=== PATIENT | male | born 1965 | race Caucasian/White ===

== ENCOUNTER 2018-03-28 14:05 | Emergency (ER) | payer OTHER ==
[2018-03-28 14:53] VITALS: BP 140/85
--- NOTE | 2018-03-28 15:07 | UC ---
Lower Extremity/Ankle HPI - HPI Summary HPI Summary: 52 year old male presents with lesion to plantar left heel x 2 months. States over the past 2 weeks has become painful with weight bearing. States "feels like there is something sharp in there". 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 Denies fever, chills, redness, swelling, or drainage. - History of Current Complaint Chief Complaint: UCLowerExtremity Stated Complaint: LEFT HEEL PAIN Time Seen by Provider: 03/28/18 14:56 Hx Obtained From: Patient Onset/Duration: Gradual Onset, Lasting Weeks Severity Currently: Mild Pain Intensity: 2 Aggravating Factor(s): Other - Weight bearing Alleviating Factor(s): Nothing Able to Bear Weight: Yes - Allergies/Home Medications Allergies/Adverse Reactions: Allergies Allergy/AdvReac Type Severity Reaction Status Date / Time No Known Allergies Allergy Verified 03/28/18 14:47 Home Medications: Home Medications NK [No Home Medications Reported] 03/28/18 [History Confirmed 03/28/18] PMH/Surg Hx/FS Hx/Imm Hx Cardiovascular History: Hypertension - Surgical History Surgical History: None - Family History Known Family History: Positive: Non-Contributory - Social History Occupation: Employed Full-time Lives: With Family Alcohol Use: Daily Alcohol Amount: 6 pack/night Substance Use Type: None Smoking Status (MU): Heavy Every Day Tobacco Smoker Type: Cigarettes Amount Used/How Often: 1 PPD Length of Time of Smoking/Using Tobacco: 30 years Household Exposure Type: Cigarettes Review of Systems All Other Systems Reviewed And Are Negative: Yes Constitutional: Negative: Fever, Chills Skin: Positive: Other - See HPI Motor: Negative: Weakness Neurovascular: Negative: Decreased Sensation, Decreased Pulses Musculoskeletal: Negative: Arthralgia, Decreased ROM, Edema Is Patient Immunocompromised?: No Physical Exam Triage Information Reviewed: Yes Appearance: Well-Appearing, No Pain Distress, Well-Nourished Vital Signs: Initial Vital Signs Temp 98 F 03/28/18 14:47 Pulse 99 03/28/18 14:47 Resp 17 03/28/18 14:47 BP 140/85 03/28/18 14:47 Pulse Ox 100 03/28/18 14:47 Respiratory: Positive: Lungs clear, Normal breath sounds, No respiratory distress Cardiovascular: Positive: RRR, No Murmur, Pulses Normal, Brisk Capillary Refill Musculoskeletal: Positive: Strength Intact, ROM Intact, No Edema Neurological: Positive: Alert, Other: - Sensation intact distally Skin: Positive: Significant Lesion(s) - Single white circular flat ketratotic lesion 0.5 cm in diameter without erythema, edema, induration, fluctuance, or discharge. Diagnostics - Radiology No standard instances Radiology Interpretation Completed By: ED Physician - Negative for FB, Radiologist Summary of Radiographic Findings: Patient Name: PÉREZ BECK Medical Record#: [id number]. Ordering Physician: Arnol Turner NP Acct.#: [id number]. : 1965 Age: 52 Sex: M Location: [facility]. Exam Date: 1511 ADM Status: REG ER. Order Information: HEEL LEFT 2+ VWS. Accession Number: [id number]. CPT: 97340. HISTORY: r/o FB. COMPARISONS: None. VIEWS: 4 , lateral, bilateral oblique, and axial views of the left calcaneus. FINDINGS : BONE DENSITY: Normal. BONES: There is no displaced fracture. JOINTS: There is no arthropathy. ALIGNMENT: There is no dislocation. SOFT TISSUES: Unremarkable. OTHER FINDINGS: There is no radiopaque foreign body. IMPRESSION : NO ACUTE OSSEOUS INJURY. NO RADIOPAQUE FOREIGN BODY. IF SYMPTOMS PERSIST, RECOMMEND REPEAT. IMAGING. Lower Extremity Course/Dx - Course Course Of Treatment: 52 year old male presents with lesion to plantar left heel x 2 months. States over the past 2 weeks has become painful with weight bearing. States "feels like there is something sharp in there". 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 Exam revealed lesion consistent with plantar wart but an x -ray was obtained as patient was concerned for possible FB. X-ray negative for FB. Recommended use of OTC salicylic acid and referral given to podiatry. Warning symptoms were reviewed. Verbalizes understanding and agrees with POC. - Differential Dx/Diagnosis Differential Diagnosis/HQI/PQRI: Cellulitis, Contusion, Infection, Puncture Wound, Other - foreign body Provider Diagnoses: plantar wart left heel Discharge - Sign-Out/Discharge Documenting (check all that apply): Patient Departure All imaging exams completed and their final reports reviewed: Yes - Discharge Plan Condition: Stable Disposition: HOME Patient Education Materials: Plantar Wart (ED) Referrals: Juaquin Torrez DPM [Doctor of Podiatric Medicine] - 7 Days (Call for appointment) No Primary Care Phys,NOPCP [Primary Care Provider] - [facility] [place] PHYSICIAN REFERRAL [Outside] Additional Instructions: The X-ray performed in the clinic today showed no evidence of a foreign body in the skin. The lesion is consistent with a plantar wart. You can use an over the counter salicyclic acid topical wart treatment such as Compound W according to directions to see if this improves symptoms. Take an over the counter pain medication such as acetaminophen (Tylenol) according to directions as needed for pain. I have given you a referral to Dr. Torrez, Podiatry, to follow up especially if symptoms persist. Call for an appointment. Your blood pressure was elevated in the clinic today. It is recommended that you establish with a primary care provider and have this rechecked within the next 4 weeks. I have given you the number to the [facility] Physician Referral Service if you need assistance with establishing with a provider. Seek immediate medical attention if you develop fever greater than 100.5 F, have pain that is not managed with pain medication, redness that spreads, increased swelling, or any worsening of symptoms. - Billing Disposition and Condition Condition: STABLE Disposition: Home
== END 2018-03-28 15:34 | disposition home or self-care (01) ==
LOC: UCCORT 14:05
DX: B07.0 Plantar wart (principal); I10 Essential (primary) hypertension; F17.210 Nicotine dependence, cigarettes, uncomplicated
CPT/HCPCS: 99201; G0463